=== PATIENT | male | born 1985 | race Caucasian/White ===

== ENCOUNTER 2021-10-11 08:20 | Outpatient (REF) | payer SELFPAY ==
[2021-10-11 09:23] LABS: COVID-19 Test Positive (Negative)
== END 2021-10-11 08:21 | disposition home or self-care (01) ==
LOC: HO.LAB 08:20
PROVIDERS: Visit Provider Internal Medicine
DX: Z20.822 Contact with and (suspected) exposure to COVID-19 (principal)
CPT/HCPCS: 36415; 87635; C9803

== ENCOUNTER 2021-10-23 08:24 | Outpatient (REF) | payer MEDICAID, SELFPAY ==
[2021-10-23 09:13] LABS: Binax Internal Control QC Valid; Binax Now Covid-19 Ag Negative (Negative)
== END 2021-10-23 08:25 | disposition home or self-care (01) ==
LOC: HO.LAB 08:24
PROVIDERS: Visit Provider Internal Medicine
DX: Z20.822 Contact with and (suspected) exposure to COVID-19 (principal)
CPT/HCPCS: C9803

== ENCOUNTER 2023-04-26 04:58 | Emergency (ER) | payer SELFPAY | END 2023-04-26 06:02 | disposition left against medical advice (07) | PROVIDERS: Emergency Provider Emergency Medicine | DX: R10.9 Unspecified abdominal pain (principal) ==

== ENCOUNTER 2024-07-23 18:22 | Emergency (ER) | payer SELFPAY ==
[2024-07-23 18:31] VITALS: BP 145/92; PULSE 97; RESP 22; TEMP 36.9; O2SAT 100; BMI 23.9
--- NOTE | 2024-07-23 18:31 | ED.GENADULT ---
HPI - General Adult General Chief complaint: General Medical Stated complaint: R arm pain Time Seen by Provider: 07/23/24 18:46 Source: patient Mode of arrival: ambulatory Limitations: no limitations History of Present Illness HPI narrative: Patient is a 39-year-old male who presents to the emergency department for evaluation Reports prior to arrival he went to donate plasma at [facility] in [place], reports upon attempting to obtain access to the right antecubital along the ulnar aspect were unsuccessful and were digging around and now he is experiencing a lot of pain, pain is now radiating down the forearm, he feels like he is unable to fully range his elbow due to severe pain. Extremity is neurovascularly intact distally, he appears quite anxious, hyperventilating, pain appears out of proportion for mechanism. Endorsing numbness and tingling along the side of his forearm and into the 4th and 5th digit Related Data Previous Rx's ?Medication ?Instructions ?Recorded naproxen 500 mg tablet 500 mg PO BID PRN pain #14 tabs 07/23/24 Allergies Allergy/AdvReac Type Severity Reaction Status Date / Time No Known Allergies Allergy Unverified 06/29/20 15:55 [No Known Allergies*] morphine AdvReac Unknown anaphylaxis Verified 07/23/24 18:35 Review of Systems Review of Systems: Yes all other systems are reviewed and are negative PMFSH Past Medical History Attestation statement: The following information was validated with the patient. Source: old records reviewed Social History Social History Advance Directives: No Advance Directives Information Provided: No Do you have a plan to hurt others: No Plan Physical Exam ED Vital Signs: Vital Signs - 24 hr 07/23/24 18:31 Temperature 98.4 F Pulse Rate 97 Respiratory Rate 22 H Blood Pressure 145/92 H Pulse Oximetry 100 Oxygen Delivery Method Room Air BMI result Body Mass Index 23.9 Appearance: Alert.?Oriented to person, place and time. Very anxious. CVS: Heart sounds normal. Normal heart rate and rhythm.? Pulses normal.?? Respiratory: No respiratory distress.? Lung sounds clear to auscultation bilaterally?? Skin: Skin warm and dry.? Normal skin color.? Normal skin turgor.?? Extremities: No extremity edema. 2+ radial pulse. Neurovascularly intact distally. Full range of motion to elbow wrist and digits. Neuro: Moves all extremities spontaneously. Sensation intact bilaterally. No focal neuro deficits. Ambulates with normal steady gait. Medications Administered Discontinued Medications Generic Name Dose Route Start Last Admin Trade Name Romain PRN Reason Stop Dose Admin Ketorolac Tromethamine 15 mg 07/23/24 18:45 07/23/24 18:50 Ketorolac Tromethamine 15 Mg/Ml Vial IM 07/23/24 18:46 15 mg ONCE ONE Administration Medical Decision Making Medical Decision Making [facility] Narrative: Patient is a 39-year-old male who presents emergency department for evaluation pain to the right forearm and antecubital region after attempted peripheral access for plasma donation as per HPI. He has full range of motion to the elbow , wrist, and digits. No localized swelling of the attempts peripheral access insertion site, no surrounding erythema. No obvious deformities. Sensation intact, 2+ radial pulse. History and physical examination concerning for possible injury to the median this would not explain his numbness and tingling to the 4th and 5th digit, I would anticipate this would be more so an injury to the ulnar nerve but do not feel that this would have been injured with peripheral access. Reviewed this case with my attending Dr. Pena, he also evaluated the patient, agrees with plan of care, conservative treatment, rest, ice to the area presents to minutes 3-4 times daily, use of NSAIDs, immobilization of the upper extremity for a few days, outpatient follow-up primary care provider and/or return to emergency department with any new or worsening symptoms or concerns. Patient received Toradol injection while in the emergency department, will discharge with naproxen. Differential Diagnosis Differential Diagnoses: The differential diagnosis associated with the presentation includes (See narrative above) Admission/Observation Consideration of admission/observation: Escalation of care including admission/observation considered Prescription Management I considered prescription management with: Pain Medication (See narrative above) Discharge Plan Discharge Clinical Impression: Neuropathic pain of right forearm Patient Disposition: Home, Self-Care Instructions: Paresthesia (ED) Additional Instructions: As discussed, the pain that you are describing is concerning for nerve involvement. please rest the arm over the next few days, use the arm sling as provided. Apply ice to the area for 10-15 minutes 3-4 times daily. You received an injection of an anti-inflammatory medication in the emergency department today to help alleviate the pain. A prescription for naproxen has been sent to your pharmacy, you may take this twice daily. Do not take additional [id number] NSAIDs this includes ibuprofen/Motrin/Advil, aspirin, Aleve Please follow-up with your primary care doctor, you may return to emergency department any new or worsening symptoms or concerns. Prescriptions: New naproxen 500 mg tablet 500 mg PO BID PRN (Reason: pain) Qty: 14 0RF Referrals: Physician,None [Primary Care Provider] - Print Language: Estonian
[2024-07-23] MEDS: Ketorolac Tromethamine 15 MG/ML VIAL IM (18:50)
== END 2024-07-23 19:20 | disposition home or self-care (01) ==
PROVIDERS: Emergency Provider Emergency Medicine
DX: M79.631 Pain in right forearm (principal)
CPT/HCPCS: 96372; 99282; 99284; J1885